=== PATIENT | male | born 1955 | race Caucasian/White ===

== ENCOUNTER 2018-12-24 12:42 | Inpatient (IN) | payer BC ==
[2018-12-24 13:23] LABS: #Eosinphils 0.5 thou/uL (0.0-0.7); #Lymphocytes 1.4 thou/uL (1.20-3.40); #Monocytes 1.1 thou/uL (0.11-0.59); #Neutrophils 11.2 thou/uL (1.40-6.50); %Basophils 0.2 % (0.0-1.0); %Eosinophils 3.7 % (0.0-10.0); %Lymphocytes 9.8 % (21.0-51.0); %Monocytes 7.4 % (0.0-10.0); %Neutrophils 78.9 % (42.0-75.0); Hemoglobin 12.3 g/dL (14.0-18.0); Mean Corpuscular HGB CONC 32.1 g/dL (32.0-36.0); Mean Corpuscular Hemoglobin 30.6 pg (27.0-31.0); Mean Corpuscular Volume 95.3 fL (78.0-98.0); Mean Platelet Volume 6.8 fL (7.4-10.4); Platelet Count 270 thou/uL (130-400); RBC Distribution Width 12.4 % (11.5-14.5); Red Blood Cell (RBC) Count 4.01 mill/uL (4.70-6.10); White Blood Cell (WBC) Count 14.2 thou/uL (4.8-10.8)
[2018-12-24 13:37] LABS: ALT (SGPT) 19 U/L (8-55); AST (SGOT) 21 U/L (5-34); Albumin 3.6 g/dL (3.4-4.8); Alkaline Phosphatase 91 U/L (40-150); Anion Gap 16 mmol/L (10-20); BUN (Urea Nitrogen) 36 mg/dL (8.4-25.7); Bilirubin, Total 0.9 mg/dL (0.2-1.2); CK (CPK) 67 U/L (30-200); Calc. Creatinine Clearance 0 mL/min (70-130); Calcium 8.6 mg/dL (7.8-10.44); Carbon Dioxide 24 mmol/L (23-31); Chloride 101 mmol/L (98-107); Estimated GFR-MDRD 42; Globulin 3.3 g/dL (2.4-3.5); Glucose 126 mg/dL (80-115); Protein, Total 6.9 g/dL (5.8-8.1); Sodium 137 mmol/L (136-145)
[2018-12-24] MEDS ORDERED: ISOVUE-370 76%-LOCM 1 ML ONE (13:53)
[2018-12-24 14:00] LABS: CKMB 1.4 ng/mL (0-6.6)
[2018-12-24] MEDS ORDERED: Enoxaparin Sodium 100 MG/ML SYRINGE ONE (14:25)
[2018-12-24] MEDS ORDERED: Enoxaparin Sodium 30 MG/0.3 ML SYRINGE ONE (14:25)
[2018-12-24] MEDS ORDERED: Enoxaparin Sodium 40 MG/0.4 ML SYRINGE ONE (14:28)
[2018-12-24] MEDS ORDERED: Enoxaparin Sodium 60 MG/0.6 ML SYRINGE ONE (14:28)
--- NOTE | 2018-12-24 14:30 | CT ---
CTA CHEST WITH CONTRAST: HISTORY: Lightheadedness and near syncope. Poor oxygen saturation. COMPARISON: None. TECHNIQUE: Multiple contiguous axial images were obtained in a CTA chest with contrast, per pulmonary embolism p rotocol, and 3D oblique MIP reformats and direct coronal reformats were performed. FINDINGS: There are multiple filling defects in the pulmonary arteries, scattered throughout the lungs, consist ent with multiple pulmonary emboli. The heart is normal in size. No significant shift of the interv entricular septum of the heart is seen. No hilar or mediastinal lymphadenopathy is seen. No pneumothorax or pleural effusion is seen. No focal infiltrates are seen in the lungs. No suspici ous pulmonary nodule is seen. There are healed remote right rib fractures. Degenerative changes are seen in the spine. The visual ized subdiaphragmatic structures are unremarkable. IMPRESSION: Multiple bilateral pulmonary emboli. Dr. Baer was notified of the findings at 2:09 p.m. on 12/24/2018. CODE CR
[2018-12-24] MEDS ORDERED: Calcium Carbonate 500 MG ChewTAB PO PRN (14:35)
[2018-12-24] MEDS ORDERED: Ondansetron PF 4 MG/2 ML Vial IVP PRN ×2 (14:35)
[2018-12-24] MEDS ORDERED: hydrALAZINE 20 MG/ML VIAL SLOW IVP PRN (14:35)
[2018-12-24] MEDS ORDERED: Bisacodyl 5 MG TAB PO PRN ×2 (14:35)
[2018-12-24] MEDS ORDERED: cloNIDine 0.1 MG TAB PO PRN (14:35)
[2018-12-24] MEDS ORDERED: Sodium Chloride 0.65% Nasal 44 ML BOT EA NARE PRN (14:35)
[2018-12-24] MEDS ORDERED: Benzonatate 100 MG CAP PO PRN (14:35)
[2018-12-24] MEDS ORDERED: Diabetic Tussin 200 MG/10 ML UDCUP PO PRN (14:35)
[2018-12-24] MEDS ORDERED: Senokot S 8.6-50 MG TAB PO PRN ×2 (14:35)
[2018-12-24] MEDS ORDERED: Acetaminophen 325 MG TAB PO PRN (14:35)
[2018-12-24 15:04] LABS: INR-International Normal Ratio 1.1; PTT 31.9 SEC (22.9-36.1); Prothrombin Time 14.4 SEC (12.0-14.7)
[2018-12-24 16:42] VITALS: BMI 45.1
--- NOTE | 2018-12-24 17:24 | HP ---
PRIMARY CARE PHYSICIAN: Hector Mendoza MD CHIEF COMPLAINT: Fainting and shortness of breath. HISTORY OF PRESENTING ILLNESS: Mr. Gonzales is a pleasant 63-year-old male with past medical history of hypertension, who presented to the ER with above-mentioned complaint. History is mainly obtained by the patient himself. Electronic medical records have been reviewed, and case has been discussed with admitting ER physician, Dr. Baer. Mr. Gonzales reports that he recently underwent a knee replacement surgery for his left knee over at [facility] by Dr. Soria. He was discharged to rehab and came back home earlier this morning. He has been doing fine up until this morning. At home, he felt lightheaded and almost passed out. He was feeling clammy. EMS was called, and he was found to be tachypneic with oxygen saturation of 88% and tachycardic en route. Oxygen level improved to 97% to 98% with 1 L. He otherwise denies any recent illnesses. He did not have any chest pain, orthopnea, or PND. He denies any lower extremity pain, swelling, erythema, or edema. He has no complications with his recent TKR. Upon presentation to the ER, he was still tachycardic with a heart rate of 124, but saturating 90% on room air, improving to 93% to 94% on [address] angio was done, which showed bilateral pulmonary embolism. A 12-lead EKG shows sinus tachycardia. He was given one dose of therapeutic Lovenox and is now being admitted to [facility] for the same. During his stay at [facility], he was having difficulty with urination in the postoperative period, so he was sent home with a Ng catheter and leg bag and is supposed to follow up with Urology in the outpatient setting. His dressings for the left knee have been replaced on 12/20/2018 over at the rehab. The patient denies any similar symptoms in the past. PAST MEDICAL HISTORY: 1. Hypertension. 2. Fluid retention. 3. Urinary incontinence and retention postop. PAST SURGICAL HISTORY: Left knee surgery on 12/11/2018. PSYCHIATRIC HISTORY: No anxiety. No depression. SOCIAL HISTORY: He lives at home with his family. No history of drug, tobacco, or alcohol abuse. FAMILY HISTORY: Significant for stomach cancer in his mother, who at the age of 90 with lung metastasis. He denies any history of bleeding or clotting disorder or heart disease running in his family. ALLERGIES: NO KNOWN MEDICATION ALLERGIES. CURRENT MEDICATIONS: Hydrochlorothiazide 12.5 mg daily, otherwise unknown. Further need to be reconciled. REVIEW OF SYSTEMS: A 14-point review of system is done and it is negative except for those mentioned in the history and physical. LABORATORY DATA: CBC shows WBCs 14.2, hemoglobin 12.3. His PT, PTT, and INR are unremarkable. Serum chemistry showed BUN 36, creatinine 1.67, blood sugar 126. Troponin 0.067 with a CK-MB of 1.4. BNP of 21. A 12-lead EKG by my review shows sinus tachycardia without any acute ST or T-wave changes. CT angio shows multiple bilateral pulmonary emboli. No cardiomegaly or shift of interventricular septum of the heart is seen. PHYSICAL EXAMINATION: VITAL SIGNS: His vital signs upon presentation to the ER include pulse of 124, respirations 22, temperature 98.4, saturating 90% on room air, blood pressure 90/57 with most recent blood pressure of 136/91. GENERAL: No acute distress. Awake, alert, and oriented x3. HEENT: Mucous membrane is slightly dry. No oropharyngeal exudate or erythema. Head is normocephalic and atraumatic. Pupils are equal and reactive to light and accommodation. Extraocular movement intact. NECK: Supple without any lymphadenopathy, JVD, or bruit. CHEST: Clear to auscultation without any wheezing, rales, or rhonchi. HEART: Rate and rhythm are regular without any murmurs, rubs, or gallops. ABDOMEN: Obese, soft, nontender, nondistended. Positive bowel sounds. EXTREMITIES: Free of any cyanosis, clubbing, or edema. No calf tenderness is noticed. His left knee has no erythema, warmth, or swelling. A long postoperative dressing is noted on his left knee extending to his anterior tamez without any discharge. NEUROLOGICAL: Nonfocal. SKIN: Free of any rashes or bruises. Feels warm and dry to touch. PSYCHIATRIC: Normal affect. IMPRESSION AND PLAN: 1. Pulmonary embolism, bilateral and multiple. This is most likely secondary to immobilization in the postoperative period. The patient will be anticoagulated with Lovenox 1 mg/kg b.i.d. and will be admitted to [facility], and we will consult Pulmonary Medicine for further recommendations. He can be easily transitioned to oral anticoagulation within a day or so and then monitored for any complications in the hospital. He most likely will require anticoagulation for at least 6 months given the fact that pulmonary embolism are multiple. No other risk factors are noticed. He is a nonsmoker. He is otherwise hemodynamically stable without any evidence of right-sided heart strain. 2. Acute renal insufficiency, most likely poor hydration. His last creatinine noted in our system was 1.80. At this time, we will avoid any nephrotoxic agents and monitor him closely. If needed, he can be started on some IV fluids. 3. Morbid obesity. 4. Hypertension. Reconcile home medications. Use p.r.n. antihypertensives for now. 5. Indeterminate troponin, likely due to pulmonary embolism without any real right ventricular strain. We will trend serial cardiac enzymes, and if they continue to go up, we will obtain a transesophageal echocardiogram. The patient denies any history of cardiac disease for himself. DISPOSITION: Mr. Gonzales is being admitted to the hospital for bilateral pulmonary embolism, most likely related to immobilization in the postoperative period. Estimated length of stay at this time is at least 2 to 3 midnights. Further management will depend upon his clinical course. Job ID: [id number]
[2018-12-24] MEDS ORDERED: Heparin 10,000 UNITS/ 10 ML VIAL SLOW IVP SCH (19:30)
[2018-12-24] MEDS: Heparin 25,000 units/D5W 500 ML IV SCH (19:54)
[2018-12-24] MEDS: Famotidine 20 MG TAB PO SCH (20:08)
[2018-12-24] MEDS ORDERED: Enoxaparin Sodium 100 MG/ML SYRINGE SC SCH (21:00)
[2018-12-24] MEDS ORDERED: Enoxaparin Sodium 40 MG/0.4 ML SYRINGE SC SCH (21:00)
[2018-12-24] MEDS ORDERED: Enoxaparin Sodium 120 MG/0.8 ML SYRINGE SC SCH (21:00)
--- NOTE | 2018-12-24 21:12 | CON ---
DATE OF CONSULTATION: 12/24/2018 SERVICE: Pulmonary Medicine. REASON FOR CONSULT: Pulmonary embolism. HISTORY OF PRESENT ILLNESS: The patient is a 63-year-old white male with past medical history significant for recent knee surgery. This was exactly 13 days ago. He was in his usual state of health and was participating with rehabilitation. He actually just got released from rehabilitation today. He was breathing comfortably and had no complaints. He then had sudden onset of feeling unwell. He got lightheaded and had a little bit of shortness of breath. Otherwise, he had a hard time characterizing his discomfort. He was cold and clammy, and presented immediately to the hospital. He was found to be tachycardic and tachypneic. D-dimer was elevated, prompting a CTA of the chest. This confirmed a large pulmonary embolism. He was loaded with Lovenox. He has been tucked into the IM. Since he has been on oxygen, he has felt a little bit better. He currently denies any chest discomfort. EKG showed some sinus tachycardia without any significant ST elevations. PAST MEDICAL HISTORY: 1. Hypertension. 2. Urinary incontinence/retention. 3. History of PE in the postop setting. PAST SURGICAL HISTORY: Left knee surgery. SOCIAL HISTORY: Negative for alcohol, tobacco, or illicit drug use. He has no exposure to chemicals, dust, asbestos, or tuberculosis. FAMILY HISTORY: Noncontributory. ALLERGIES: NO KNOWN DRUG ALLERGIES. MEDICATIONS: List of his inpatient medications was reviewed. I would discontinue the Lovenox and put him on heparin drip. The tPA will be placed at bedside. REVIEW OF SYSTEMS: General, head, ears, eyes, nose, throat, cardiovascular, respiratory, GI, , musculoskeletal, neurologic, and skin are negative except as mentioned in the HPI. PHYSICAL EXAMINATION: VITAL SIGNS: Afebrile, pulse 120, blood pressure 102/77, respirations 21, saturation 95% on 3 L nasal cannula. GENERAL: The patient is awake and alert, in no apparent distress. LUNGS: Excellent air entry. There is absolutely no prolonged expiratory phase or wheezing present. No crackles or rhonchi appreciated. HEART: Tachycardic. Regular. ABDOMEN: Soft, nontender, and nondistended. Bowel sounds are positive. MUSCULOSKELETAL: No cyanosis or clubbing. There is no pitting in either lower extremities. He has a bandage across the left knee across his incision. NEUROLOGIC: Grossly nonfocal. : No Ng. LABORATORY DATA: WBC 14.2, hemoglobin 12.3, platelets 270,000. Neutrophil count is 79% on top of 10% lymphocytes. INR 1.1. Basic metabolic profile is significant for creatinine of 1.67, which is above his baseline of 1.21. This number seems to be downtrending. Liver function studies are unremarkable. Troponin has gone from 0.07-1.2. BNP was originally unremarkable at 21. IMAGING: CTA of the chest demonstrates bilateral pulmonary emboli. Otherwise, there is no acute cardiopulmonary abnormality. The right ventricle looks quite generous. There is dyeing out of the septum. That being said, there is no reflux of contrast into the inferior vena cava. The clot burden seems to be quite impressive with a saddle component. ASSESSMENT: 1. Acute hypoxic respiratory failure. 2. Acute pulmonary embolism, submassive. 3. Hfl-DH-[id number] myocardial infarction secondary to right heart strain, most likely. DISCUSSION AND PLAN: I will give the patient 250 mL bolus of fluid. We will initiate fluids overnight. We will put him on a heparin drip and put a dose of tPA at bedside. If he gets worse, we will go ahead and give him that tPA, but I would like to hold off for the time being. We will repeat BNP and troponin once again tomorrow morning. This patient has a significant chance of decompensation but unfortunately, cannot give him tPA since he is less than two weeks postop. 70 minutes have been devoted to this patient in various activities. I personally reviewed all imaging studies and laboratory data noted within this document. For fifty percent of this time, I was interacting with the patient at the bedside or coordinating care with the care team. For the remainder of the time I was immediately available to the patient in the hospital unit. Job ID: [id number] MTDD
[2018-12-25 03:19] LABS: PTT Greater than 250.0 SEC (22.9-36.1)
[2018-12-25 05:45] LABS: #Basophils 0.1 thou/uL (0.0-0.2); #Eosinphils 0.4 thou/uL (0.0-0.7); #Lymphocytes 1.7 thou/uL (1.20-3.40); #Monocytes 1.1 thou/uL (0.11-0.59); %Basophils 0.5 % (0.0-1.0); %Eosinophils 3.6 % (0.0-10.0); %Lymphocytes 15.1 % (21.0-51.0); %Monocytes 10.1 % (0.0-10.0); %Neutrophils 70.7 % (42.0-75.0); Hemoglobin 11.5 g/dL (14.0-18.0); Mean Corpuscular HGB CONC 32.1 g/dL (32.0-36.0); Mean Corpuscular Hemoglobin 30.3 pg (27.0-31.0); Mean Corpuscular Volume 94.3 fL (78.0-98.0); Mean Platelet Volume 6.7 fL (7.4-10.4); Platelet Count 235 thou/uL (130-400); RBC Distribution Width 12.4 % (11.5-14.5); Red Blood Cell (RBC) Count 3.79 mill/uL (4.70-6.10); White Blood Cell (WBC) Count 11.2 thou/uL (4.8-10.8)
[2018-12-25 06:00] LABS: PTT 148.7 SEC (22.9-36.1)
[2018-12-25 06:02] LABS: Anion Gap 14 mmol/L (10-20); BUN (Urea Nitrogen) 34 mg/dL (8.4-25.7); Calc. Creatinine Clearance 93 mL/min (70-130); Calcium 8.7 mg/dL (7.8-10.44); Carbon Dioxide 26 mmol/L (23-31); Estimated GFR-MDRD 45; Glucose 103 mg/dL (80-115); Potassium 3.7 mmol/L (3.5-5.1); Sodium 138 mmol/L (136-145)
[2018-12-25 06:09] LABS: Chloride 102 mmol/L (98-107)
[2018-12-25 06:10] LABS: Critical Call Chem Troponin I RESULT DECREASING; Troponin I 1.195 ng/mL (< 0.028)
[2018-12-25] MEDS: Famotidine 20 MG TAB PO SCH ×2 (09:57→20:36)
--- NOTE | 2018-12-25 13:49 | PRG ---
DATE OF SERVICE: 12/25/2018 SERVICE: Pulmonary Medicine. INTERVAL HISTORY: The patient made it through the night without incident. Denies any current chest pain, fevers, cough, nausea, or vomiting. He is breathing comfortably. He remains on 2 L nasal cannula. He is yet to be too terribly active. PHYSICAL EXAMINATION: VITAL SIGNS: Afebrile. Pulse 91, blood pressure 134/85, respirations 22, saturation 90% on 2 L nasal cannula. GENERAL: The patient is awake and alert, in no apparent distress. LUNGS: Decent air entry. No prolonged expiratory phase, wheezing, rhonchi, or crackles are present. HEART: Normal rate, regular. ABDOMEN: Soft, nontender, nondistended. Bowel sounds are positive. MUSCULOSKELETAL: No cyanosis or clubbing. No pitting in the bilateral lower extremities. NEUROLOGIC: Grossly nonfocal. LABORATORY DATA: WBC 11.1, hemoglobin 11.5, platelets 235,000. PTT is 114. Creatinine 1.57, BUN 34. Basic metabolic profile is otherwise unremarkable. Troponin is downtrending gently to 1.19. BNP is significantly increased. ASSESSMENT: 1. Acute hypoxic respiratory failure. 2. Acute pulmonary embolism, submassive. 3. Non-ST elevation myocardial infarction secondary to right heart strain. DISCUSSION AND PLAN: We will repeat troponin and BNP tomorrow morning. If these values are both dropping still, we will likely just switch him over to oral anticoagulant, and let things be. If on the other hand, either one of these two things are going up, we will give strong consideration to tPA as he would be outside the window for absolute contraindication. He will need to stay in the IMCU for an additional 24 hours on his heparin drip. Pulmonary/Critical Care will follow. Job ID: [id number]
[2018-12-25] MEDS: Heparin 25,000 units/D5W 500 ML IV SCH (15:27)
--- NOTE | 2018-12-25 19:12 | PDOC.PN ---
- Subjective Encounter Start Date: 12/25/18 Encounter Start Time: 19:11 Subjective: feels well. no more weakness .no dizzy spells -: no CP/SOB - Objective MAR Reviewed: Yes Vital Signs & Weight: Vital Signs (12 hours) Temp Pulse Ox 12/25/18 15:46 99.7 F H 12/25/18 10:46 98.2 F 12/25/18 08:00 98 12/25/18 07:45 97.7 F Weight Weight 298 lb 4.567 oz Most Recent Monitor Data Heart Rate from ECG 96 NIBP 124/84 NIBP BP-Mean 97 Respiration from ECG 22 SpO2 100 I&O: 12/24/18 12/25/18 12/26/18 06:59 06:59 06:59 Intake Total 772 Output Total 640 Balance 132 Result Diagrams: 12/25/18 05:23 12/25/18 05:23 Additional Labs: Laboratory Tests 12/24/18 12/24/18 12/24/18 13:06 13:06 17:52 Troponin I 0.067 H 1.249 H* B-Natriuretic Peptide 21.0 12/25/18 12/25/18 05:23 05:23 Troponin I 1.195 H* B-Natriuretic Peptide 802.7 H Phys Exam - Physical Examination Constitutional: NAD HEENT: PERRLA, moist MMs, sclera anicteric, oral pharynx no lesions Neck: no nodes, no JVD, supple, full ROM Respiratory: no wheezing, no rales, no rhonchi, clear to auscultation bilateral Cardiovascular: RRR, no significant murmur Gastrointestinal: soft, non-tender, no distention, positive bowel sounds Musculoskeletal: no edema, pulses present Neurological: non-focal, normal sensation, moves all 4 limbs Psychiatric: normal affect, A&O x 3 Skin: no rash Dx/Plan (1) Pulmonary emboli Code(s): I26.99 - OTHER PULMONARY EMBOLISM WITHOUT ACUTE COR PULMONALE Status : Acute (2) HTN (hypertension) Code(s): I10 - ESSENTIAL (PRIMARY) HYPERTENSION Status: Acute (3) HLD (hyperlipidemia) Code(s): E78.5 - HYPERLIPIDEMIA, UNSPECIFIED Status: Acute (4) Morbid obesity Code(s): E66.01 - MORBID (SEVERE) OBESITY DUE TO EXCESS CALORIES Status: Acute - Plan DVT proph w/SCDs cont heparin drip for B/L PE . -: BNp and troponin trended up but HD stable.may need t-pa if values worsen -: appreciate PCCM recs -: Check ECHO for evidence of RV strain. * . Review of Systems - Review of Systems Constitutional: negative: fever, chills, sweats, weakness, malaise, other Respiratory: negative: Cough, Dry, Shortness of Breath, Hemoptysis, SOB with Excertion, Pleuritic Pain, Sputum, Wheezing Cardiovascular: negative: chest pain, palpitations, orthopnea, paroxysmal nocturnal dyspnea, edema, light headedness, other Gastrointestinal: negative: Nausea, Vomiting, Abdominal Pain, Diarrhea, Constipation, Melena, Hematochezia, Other Genitourinary: negative: Dysuria, Frequency, Incontinence, Hematuria, Retention , Other Musculoskeletal: negative: Neck Pain, Shoulder Pain, Arm Pain, Back Pain, Hand Pain, Leg Pain, Foot Pain, Other Neurological: negative: Weakness, Numbness, Incoordination, Change in Speech, Confusion, Seizures, Other - Medications/Allergies Allergies/Adverse Reactions: Allergies Allergy/AdvReac Type Severity Reaction Status Date / Time No Known Allergies Allergy Verified 12/24/18 16:31 Medications: Current Medications Acetaminophen (Tylenol) 650 mg PO Q4H PRN PRN Reason: Headache/Fever/Mild Pain (1-3) Benzonatate (Tessalon) 100 mg PO Q6H PRN PRN Reason: Cough Bisacodyl (Dulcolax) 10 mg PO DAILYPRN PRN PRN Reason: Constipation Calcium Carbonate (Tums) 1,000 mg PO Q4H PRN PRN Reason: Heartburn or Indigestion Clonidine (Catapres) 0.1 mg PO Q4H PRN PRN Reason: SBP > 160____ Famotidine (Pepcid) 20 mg PO BID [facility] Last Admin: 12/25/18 09:57 Dose: 20 mg Guaifenesin (Robitussin Sf) 200 mg PO Q4H PRN PRN Reason: Cough Heparin Sodium (Porcine) (Heparin 1,000 Units/Ml (10 Ml)) 0 units SLOW IVP [facility] Last Admin: 12/24/18 19:54 Dose: 10 ml Hydralazine HCl (Apresoline) 10 mg SLOW IVP Q4H PRN PRN Reason: SBP > 180 and HR < 70 Heparin Sodium/Dextrose (Heparin 25,000 Units/D5w 500 Ml) 500 mls @ 0 mls/hr IV INF MAIDA; Protocol Last Admin: 12/25/18 15:27 Dose: 500 mls Ondansetron HCl (Zofran) 4 mg IVP Q6H PRN PRN Reason: Nausea/Vomiting Senna/Docusate Sodium (Senokot S) 2 tab PO BID PRN PRN Reason: Constipation Sodium Chloride ([place] Nasal [place] 0.65%) 0 ml EA NARE QIDPRN PRN PRN Reason: Nasal Congestion
[2018-12-25] MEDS ORDERED: Loratadine 10 MG TAB PO PRN (20:00)
[2018-12-26 05:20] LABS: Hemoglobin 11.1 g/dL (14.0-18.0)
[2018-12-26 05:42] LABS: Anion Gap 12 mmol/L (10-20); BUN (Urea Nitrogen) 35 mg/dL (8.4-25.7); Calc. Creatinine Clearance 91 mL/min (70-130); Calcium 8.6 mg/dL (7.8-10.44); Carbon Dioxide 27 mmol/L (23-31); Chloride 102 mmol/L (98-107); Estimated GFR-MDRD 45; Glucose 91 mg/dL (80-115); Potassium 3.8 mmol/L (3.5-5.1); Sodium 137 mmol/L (136-145)
[2018-12-26 05:54] LABS: Critical Call Chem Troponin I RESULT DECREASING; Troponin I 0.319 ng/mL (< 0.028)
[2018-12-26] MEDS: Famotidine 20 MG TAB PO SCH ×2 (08:36→20:39)
[2018-12-26] MEDS ORDERED: Famotidine 20 MG TAB PO SCH (09:00)
[2018-12-26] MEDS ORDERED: Apixaban 5 MG TAB PO SCH (12:00)
--- NOTE | 2018-12-26 12:42 | PRG ---
DATE OF SERVICE: 12/26/2018 SERVICE: Pulmonary Medicine. INTERVAL HISTORY: The patient is doing really well from breathing standpoint. Denies any current chest pain, fevers, cough, nausea, or vomiting. He is able to walk in the hallways without oxygen. He did not desaturate. His blood pressures did well, and he did not develop any weakness or lightheadedness. PHYSICAL EXAMINATION: VITAL SIGNS: Afebrile, pulse 90, blood pressure 132/85, respirations 17, and saturation is 95% on room air. GENERAL: The patient is awake and alert, in no apparent distress. LUNGS: Very good air entry. There is no prolonged expiratory phase. No wheezing or crackles are appreciated. HEART: Normal rate and regular. ABDOMEN: Soft, nontender, and nondistended. Bowel sounds are positive. MUSCULOSKELETAL: No cyanosis or clubbing. No pitting in the bilateral lower extremities. NEUROLOGIC: Grossly nonfocal. LABORATORIES: Hemoglobin 11.1. Creatinine 1.58 and stable. Basic metabolic profile is otherwise unremarkable. Troponin is beautifully downtrending, as is the BNP. Magnesium is 2.1. His sodium is 137, and beautifully stable. ASSESSMENT: 1. Acute hypoxic respiratory failure, resolved. 2. Acute pulmonary embolism, submassive. 3. Vre-BS-vrtrnpy elevation myocardial infarction, secondary to right heart strain, resolving. DISCUSSION AND PLAN: Because of the beautiful response of the BNP and troponin, we can transition him to the floor and switch him over to oral agents. We will repeat all of these laboratories in the morning. If they continue to trend downward, he will be stable for discharge from the hospital. Pulmonary/Critical Care will continue to follow along. Job ID: [id number]
[2018-12-26] MEDS: Apixaban 5 MG TAB PO SCH (20:39)
--- NOTE | 2018-12-26 22:10 | PDOC.HOSPP ---
- Subjective Subjective: Patient seen and examined for PE. No CP/SOB or palpitations. No new complaints. No overnight events - Objective Vital Signs & Weight: Vital Signs (12 hours) Temp Pulse Resp BP Pulse Ox 12/26/18 19:15 98.7 F 91 18 139/68 92 L 12/26/18 16:45 98.2 F 102 H 16 119/87 99 12/26/18 15:17 99.8 F H 12/26/18 10:49 98.9 F Weight Weight 292 lb 15.909 oz Most Recent Monitor Data Heart Rate from ECG 96 NIBP 133/71 NIBP BP-Mean 91 Respiration from ECG 29 SpO2 92 I&O: 12/25/18 12/26/18 12/27/18 06:59 06:59 06:59 Intake Total 772 1350 780 Output Total 640 2675 400 Balance 132 -1325 380 Result Diagrams: 12/26/18 04:52 12/26/18 04:52 Additional Labs: Laboratory Tests 12/24/18 12/24/18 12/24/18 13:06 13:06 17:52 Troponin I 0.067 H 1.249 H* B-Natriuretic Peptide 21.0 12/25/18 12/26/18 12/26/18 05:23 04:52 04:52 Troponin I 0.319 H* B-Natriuretic Peptide 802.7 H 220.7 H EKG Reviewed by me: Yes (Tele SR) ROS - Review of Systems All systems: All other ROS were reviewed and found negative. - Medication Medications: Active Medications Generic Name Dose Route Start Last Admin Trade Name Freq PRN Reason Stop Dose Admin Apixaban 10 mg 12/26/18 21:00 12/26/18 20:39 Eliquis PO 01/02/19 21:01 10 mg BID MAIDA Administration Famotidine 20 mg 12/24/18 21:00 12/26/18 20:39 Pepcid PO 20 mg BID MAIDA Administration - Exam NAD Heart: RRR, no rubs Respiratory: CTAB, no ronchi Gastrointestinal: soft, non-tender, normal bowel sounds Extremities: no cyanosis Neurological: no focal deficits Hosp A/P (1) Pulmonary emboli Code(s): I26.99 - OTHER PULMONARY EMBOLISM WITHOUT ACUTE COR PULMONALE Status : Acute Qualifiers: Chronicity: acute (2) Type 2 myocardial infarction Code(s): I21.A1 - MYOCARDIAL INFARCTION TYPE 2 (3) HLD (hyperlipidemia) Code(s): E78.5 - HYPERLIPIDEMIA, UNSPECIFIED Status: Chronic (4) HTN (hypertension) Code(s): I10 - ESSENTIAL (PRIMARY) HYPERTENSION Status: Chronic (5) Morbid obesity with BMI of 40.0-44.9, adult Code(s): E66.01 - MORBID (SEVERE) OBESITY DUE TO EXCESS CALORIES; Z68.41 - BODY MASS INDEX (BMI) 40.0-44.9, ADULT Status: Chronic (6) H/O left knee surgery Code(s): Z98.890 - OTHER SPECIFIED POSTPROCEDURAL STATES (7) CKD (chronic kidney disease) stage 3, GFR 30-59 ml/min Code(s): N18.3 - CHRONIC KIDNEY DISEASE, STAGE 3 (MODERATE) Status: Chronic (8) Chronic anemia Code(s): D64.9 - ANEMIA, UNSPECIFIED Status: Chronic - Plan plan discussed w/ family, PT/OT Started on Eliquis - Patient understands the risk associated with anticoag Consult Ortho per patient request for rachel removal Cont to monitor Echo reviewed Cont other meds as below Eliquis coupon provided AM labs
[2018-12-27 05:51] LABS: Anion Gap 12 mmol/L (10-20); BUN (Urea Nitrogen) 33 mg/dL (8.4-25.7); Calc. Creatinine Clearance 108 mL/min (70-130); Calcium 8.4 mg/dL (7.8-10.44); Carbon Dioxide 25 mmol/L (23-31); Chloride 103 mmol/L (98-107); Estimated GFR-MDRD 53; Glucose 89 mg/dL (80-115); Potassium 3.7 mmol/L (3.5-5.1); Sodium 136 mmol/L (136-145)
[2018-12-27 05:57] LABS: Troponin I 0.192 ng/mL (< 0.028)
[2018-12-27] MEDS: Apixaban 5 MG TAB PO SCH (08:41)
[2018-12-27] MEDS: Famotidine 20 MG TAB PO SCH (08:42)
[2018-12-27] MEDS ORDERED: Amlodipine 10 MG TAB PO SCH (09:00)
[2018-12-27 13:06] VITALS: BP 143/81; TEMP 98.2
--- NOTE | 2018-12-27 14:37 | PRG ---
DATE OF SERVICE: 12/27/2018 SERVICE: Pulmonary Medicine. INTERVAL HISTORY: The patient is doing outstanding from a respiratory standpoint. He has no complaints of chest discomfort, nausea, or vomiting. He is able to walk with physical therapy without difficulty. Otherwise, he has returned to his usual state of health. He has been weaned down to room air for over 12 hours. PHYSICAL EXAMINATION: VITAL SIGNS: Afebrile, pulse 83, blood pressure 143/81, respirations 18, and saturation 94% on room air. GENERAL: The patient is awake and alert, in no apparent distress. LUNGS: Very good air entry without any prolonged expiratory phase or wheezing present. HEART: Normal rate and regular. ABDOMEN: Soft, nontender, and nondistended. Bowel sounds are positive. MUSCULOSKELETAL: No cyanosis or clubbing. There is no pitting in the bilateral lower extremities. NEUROLOGIC: Grossly nonfocal. LABORATORY DATA: Troponin was 0.19 and downtrending, BNP 75 and also improved. Creatinine has improved to 1.37. Basic metabolic profile is otherwise unremarkable. IMAGING: Echocardiogram demonstrates normal ejection fraction. The right ventricle was not clearly identified. ASSESSMENT: 1. Acute hypoxic respiratory failure, resolved. 2. Acute pulmonary embolism, submassive. 3. Gkk-JI-yaduocwoc myocardial infarction secondary to right heart strain, resolving. DISCUSSION AND PLAN: The patient is stable for transition out of the hospital. He will need to go out on Eliquis. This is a 4-day load followed by 5 mg twice daily. I will have him return to clinic and see me in 3 months or sooner if clinically indicated. At that point, we will consider evaluating for sleep apnea. Job ID: [id number]
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
[2019-01-03] MEDS ORDERED: Apixaban 5 MG TAB PO SCH (21:00)
== END 2018-12-27 14:38 | disposition home or self-care (01) | DRG 175 ==
LOC: ERS 12:42 → IMCU/EMU 16:04 → 2NO 12-26 16:51
PROVIDERS: ADMIT Internal Medicine; ATTEND Internal Medicine
DX: I26.99 Other pulmonary embolism without acute cor pulmonale (principal); I21.A1 Myocardial infarction type 2; J96.01 Acute respiratory failure with hypoxia; N17.9 Acute kidney failure, unspecified; Z68.42 Body mass index [BMI] 45.0-49.9, adult; E66.01 Morbid (severe) obesity due to excess calories; E78.5 Hyperlipidemia, unspecified; N18.3 Chronic kidney disease, stage 3 (moderate); D63.1 Anemia in chronic kidney disease; I12.9 Hypertensive chronic kidney disease with stage 1 through stage 4 chronic kidney disease, or unspecified chronic kidney disease; I08.1 Rheumatic disorders of both mitral and tricuspid valves; Z96.652 Presence of left artificial knee joint; Z79.899 Other long term (current) drug therapy
CPT/HCPCS: 36415; 71275; 80048; 80053; 82550; 82553; 83735; 83880; 84484; 85014; 85018; 85025; 85610; 85730; 93005; 93306; 96372; J1644; J1650; J2997; Q9966

== ENCOUNTER 2019-02-13 13:46 | Outpatient (CLI) | payer BC ==
--- NOTE | 2019-02-13 14:20 | RAD ---
PA AND LATERAL CHEST: Date: 02/13/19 INDICATION: Dyspnea. COMPARISON: Prior exam dated 06/22/10. FINDINGS: There is stable elevation of the left hemidiaphragm. No consolidation is evident. There is multilevel spondylosis of the thoracic spine. Heart size is within normal limits. IMPRESSION: No acute cardiopulmonary abnormality. POS: OFF
== END 2019-02-13 13:47 | disposition home or self-care (01) ==
LOC: RAD 13:46
PROVIDERS: ATTEND Internal Medicine
DX: R06.00 Dyspnea, unspecified (principal)
CPT/HCPCS: 71046

== ENCOUNTER 2019-04-06 20:30 | Outpatient (CLI) | payer BC | END 2019-04-06 20:31 | disposition home or self-care (01) | LOC: SLEEPLAB 20:30 | PROVIDERS: ATTEND Internal Medicine | DX: G47.33 Obstructive sleep apnea (adult) (pediatric) (principal); E66.9 Obesity, unspecified; I10 Essential (primary) hypertension; R35.1 Nocturia; R53.83 Other fatigue; G47.31 Primary central sleep apnea | CPT/HCPCS: 95811 ==

== ENCOUNTER 2019-10-25 12:46 | Inpatient (IN) | payer BC ==
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
[2019-10-25 14:06] LABS: #Basophils 0.1 thou/uL (0.0-0.2); #Eosinphils 0.2 thou/uL (0.0-0.7); #Monocytes 0.8 thou/uL (0.11-0.59); #Neutrophils 9.5 thou/uL (1.40-6.50); %Basophils 0.5 % (0.0-1.0); %Eosinophils 1.7 % (0.0-10.0); %Monocytes 6.5 % (0.0-10.0); %Neutrophils 82.3 % (42.0-75.0); Hemoglobin 14.7 g/dL (14.0-18.0); Mean Corpuscular HGB CONC 32.3 g/dL (32.0-36.0); Mean Corpuscular Hemoglobin 30.4 pg (27.0-31.0); Mean Corpuscular Volume 94.1 fL (78.0-98.0); Mean Platelet Volume 7.5 fL (7.4-10.4); Platelet Count 204 thou/uL (130-400); RBC Distribution Width 13.1 % (11.5-14.5); Red Blood Cell (RBC) Count 4.84 mill/uL (4.70-6.10); White Blood Cell (WBC) Count 11.6 thou/uL (4.8-10.8)
[2019-10-25 14:13] LABS: PTT 31.7 SEC (22.9-36.1); Prothrombin Time 13.5 sec (12.0-14.7)
[2019-10-25] MEDS ORDERED: CEFAZOLIN 2 GM in Premix Bag 1 BAG IVPB SCH (14:30)
[2019-10-25 14:37] LABS: ALT (SGPT) 17 U/L (8-55); AST (SGOT) 21 U/L (5-34); Albumin 3.9 g/dL (3.4-4.8); Alkaline Phosphatase 81 U/L (40-110); Anion Gap 10 mmol/L (10-20); BUN (Urea Nitrogen) 29 mg/dL (8.4-25.7); Bilirubin, Total 0.5 mg/dL (0.2-1.2); Calc. Creatinine Clearance 0 mL/min (70-130); Calcium 8.6 mg/dL (7.8-10.44); Carbon Dioxide 25 mmol/L (23-31); Chloride 110 mmol/L (98-107); Estimated GFR-MDRD 56; Globulin 3.6 g/dL (2.4-3.5); Glucose 109 mg/dL (80-115); Potassium 3.7 mmol/L (3.5-5.1); Protein, Total 7.5 g/dL (5.8-8.1); Sodium 141 mmol/L (136-145)
[2019-10-25] MEDS ORDERED: Dextrose 50% Abboject 50 ML SYRINGE SLOW IVP PRN (14:44)
[2019-10-25] MEDS ORDERED: Ondansetron ODT 4 MG TAB PO PRN (14:44)
[2019-10-25] MEDS ORDERED: Dextrose 5% in Water 1,000 ML IV PRN (14:44)
[2019-10-25] MEDS ORDERED: hydrALAZINE 20 MG/ML VIAL SLOW IVP PRN (14:44)
[2019-10-25] MEDS ORDERED: Ondansetron PF 4 MG/2 ML Vial IVP PRN (14:44)
[2019-10-25] MEDS ORDERED: Morphine 2 MG/ML SYRINGE SLOW IVP PRN (14:44)
[2019-10-25] MEDS ORDERED: Promethazine HCl 25 MG/ML VIAL IM PRN (14:44)
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
[2019-10-25] MEDS ORDERED: Ibuprofen 600 MG TAB PO PRN (14:51)
[2019-10-25] MEDS ORDERED: traMADol HCl 50 MG TAB PO PRN ×2 (14:51)
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
[2019-10-25 15:17] LABS: Phosphorus 3.2 mg/dL (2.3-4.7)
[2019-10-25] MEDS ORDERED: Potassium Phosphate 15 MMOL in Sodium Chloride 0.9% 250 ML 250 ML IVPB SCH ×2 (17:15→19:45)
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
[2019-10-25 19:19] VITALS: BMI 52.9
[2019-10-25] MEDS: Sodium Chloride 0.9% 1,000 ML IV SCH ×2 (19:56→23:46)
[2019-10-25] MEDS: Acetaminophen 500 MG TAB PO SCH ×2 (19:57→23:09)
[2019-10-25] MEDS: Famotidine/PF 20 mg/2ml Vial SLOW IVP SCH (19:57)
[2019-10-25] MEDS: Cyclobenzaprine 10 MG TAB PO PRN (19:57)
[2019-10-25] MEDS: Senokot S 8.6-50 MG TAB PO SCH (19:58)
[2019-10-25] MEDS ORDERED: Sodium Chloride 0.9% 1,000 ML IV SCH (23:55)
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
[2019-10-26] MEDS: Acetaminophen 500 MG TAB PO SCH ×4 (05:37→23:20)
[2019-10-26] MEDS: Cyclobenzaprine 10 MG TAB PO PRN (05:37)
[2019-10-26 06:29] LABS: #Eosinphils 0.1 thou/uL (0.0-0.7); #Monocytes 1.1 thou/uL (0.11-0.59); #Neutrophils 5.6 thou/uL (1.40-6.50); %Basophils 0.1 % (0.0-1.0); %Eosinophils 1.5 % (0.0-10.0); %Lymphocytes 22.6 % (21.0-51.0); %Monocytes 12.6 % (0.0-10.0); %Neutrophils 63.1 % (42.0-75.0); Hemoglobin 11.1 g/dL (14.0-18.0); Mean Corpuscular HGB CONC 32.6 g/dL (32.0-36.0); Mean Corpuscular Hemoglobin 31.1 pg (27.0-31.0); Mean Corpuscular Volume 95.2 fL (78.0-98.0); Mean Platelet Volume 7.2 fL (7.4-10.4); Platelet Count 160 thou/uL (130-400); RBC Distribution Width 13.2 % (11.5-14.5); Red Blood Cell (RBC) Count 3.59 mill/uL (4.70-6.10); White Blood Cell (WBC) Count 8.8 thou/uL (4.8-10.8)
[2019-10-26 06:52] LABS: Anion Gap 11 mmol/L (10-20); BUN (Urea Nitrogen) 30 mg/dL (8.4-25.7); Calc. Creatinine Clearance 130 mL/min (70-130); Calcium 7.3 mg/dL (7.8-10.44); Carbon Dioxide 24 mmol/L (23-31); Chloride 110 mmol/L (98-107); Estimated GFR-MDRD 56; Glucose 94 mg/dL (80-115); Magnesium 2.1 mg/dL (1.6-2.6); Potassium 3.9 mmol/L (3.5-5.1); Sodium 141 mmol/L (136-145)
[2019-10-26 06:53] LABS: Phosphorus 5.1 mg/dL (2.3-4.7)
[2019-10-26] MEDS: Famotidine/PF 20 mg/2ml Vial SLOW IVP SCH ×2 (07:40→20:16)
[2019-10-26] MEDS: Sodium Chloride 0.9% 1,000 ML IV SCH (10:38)
[2019-10-26] MEDS: Senokot S 8.6-50 MG TAB PO SCH ×2 (10:38→22:02)
[2019-10-26] MEDS: Polyethylene Glycol 3350 17 GM Packet PO SCH (10:38)
[2019-10-26] MEDS ORDERED: Lidocaine 2% Jelly 5 ML TUBE ONE (11:48)
[2019-10-26] MEDS ORDERED: Fentanyl 100 MCG/2 ML VIAL ONE ×2 (11:48→15:00)
[2019-10-26] MEDS ORDERED: Midazolam HCl 2 mg/2 ml Vial ONE (11:48)
[2019-10-26] MEDS ORDERED: CEFAZOLIN 2 GM in Premix Bag 1 BAG IVPB SCH (14:00)
[2019-10-26] MEDS ORDERED: PROPOFOL 200 MG/20 ML VIAL ONE (14:23)
[2019-10-26] MEDS ORDERED: PHENYLEPHRINE-NS 100 MCG/ML 10 ML SYRINGE ONE (14:23)
[2019-10-26] MEDS ORDERED: Glycopyrrolate 0.2 MG/ML 5 ML SYRINGE ONE (14:23)
[2019-10-26] MEDS ORDERED: Lidocaine 1% PF 5 ML VIAL ONE (14:23)
[2019-10-26] MEDS ORDERED: Rocuronium Bromide 10 MG/ML (10ML VIAL) ONE (14:23)
[2019-10-26] MEDS ORDERED: Ondansetron HCl/PF 4 MG/2 ML Vial IVP PRN (14:28)
[2019-10-26] MEDS ORDERED: Promethazine HCl 25 MG/ML VIAL SLOW IVP PRN (14:28)
[2019-10-26] MEDS ORDERED: Promethazine HCl 25 MG/ML VIAL IM PRN (14:28)
--- NOTE | 2019-10-26 14:55 | RAD ---
EXAM: XR Femur Rt 2 View STANDARD PROVIDED CLINICAL HISTORY: ORIF COMPARISON: 10/25/2019 FINDINGS: Spot fluoroscopic frontal and lateral views of the right distal femur demonstrate interval lateral si de plate and screw fixation of distal femoral fracture with associated improved alignment. IMPRESSION: As above.
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
[2019-10-26] MEDS: CEFAZOLIN 2 GM in Premix Bag 1 BAG IVPB SCH (20:15)
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
[2019-10-27] MEDS: CEFAZOLIN 2 GM in Premix Bag 1 BAG IVPB SCH (03:52)
[2019-10-27] MEDS: Acetaminophen 500 MG TAB PO SCH ×4 (05:28→22:50)
[2019-10-27 05:46] LABS: #Lymphocytes 0.8 thou/uL (1.20-3.40); #Monocytes 0.9 thou/uL (0.11-0.59); #Neutrophils 10.6 thou/uL (1.40-6.50); %Basophils 0.1 % (0.0-1.0); %Eosinophils 0.1 % (0.0-10.0); %Lymphocytes 6.4 % (21.0-51.0); %Monocytes 7.5 % (0.0-10.0); Hemoglobin 9.8 g/dL (14.0-18.0); Mean Corpuscular HGB CONC 32.3 g/dL (32.0-36.0); Mean Corpuscular Volume 95.9 fL (78.0-98.0); Mean Platelet Volume 7.7 fL (7.4-10.4); Platelet Count 157 thou/uL (130-400); RBC Distribution Width 13.2 % (11.5-14.5); Red Blood Cell (RBC) Count 3.17 mill/uL (4.70-6.10); White Blood Cell (WBC) Count 12.3 thou/uL (4.8-10.8)
[2019-10-27 06:13] LABS: Anion Gap 12 mmol/L (10-20); BUN (Urea Nitrogen) 29 mg/dL (8.4-25.7); Calc. Creatinine Clearance 121 mL/min (70-130); Calcium 7.2 mg/dL (7.8-10.44); Carbon Dioxide 22 mmol/L (23-31); Chloride 110 mmol/L (98-107); Estimated GFR-MDRD 52; Glucose 139 mg/dL (80-115); Magnesium 2.2 mg/dL (1.6-2.6); Phosphorus 3.8 mg/dL (2.3-4.7); Potassium 4.3 mmol/L (3.5-5.1); Sodium 140 mmol/L (136-145)
[2019-10-27] MEDS: Amlodipine 10 MG TAB PO SCH (08:07)
[2019-10-27] MEDS: Polyethylene Glycol 3350 17 GM Packet PO SCH (08:07)
[2019-10-27] MEDS: Senokot S 8.6-50 MG TAB PO SCH ×2 (08:07→22:50)
[2019-10-27] MEDS ORDERED: Dicyclomine 10 MG CAP PO PRN (08:49)
[2019-10-27] MEDS: Apixaban 5 MG TAB PO SCH ×2 (09:37→22:49)
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
[2019-10-27] MEDS ORDERED: Sodium Chloride 0.9% 500 ML IV SCH (23:45)
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
[2019-10-28] MEDS: Acetaminophen 500 MG TAB PO SCH ×3 (05:43→17:31)
[2019-10-28 06:06] LABS: #Basophils 0.1 thou/uL (0.0-0.2); #Eosinphils 0.2 thou/uL (0.0-0.7); #Lymphocytes 2.5 thou/uL (1.20-3.40); #Monocytes 1.3 thou/uL (0.11-0.59); #Neutrophils 8.6 thou/uL (1.40-6.50); %Basophils 0.5 % (0.0-1.0); %Eosinophils 1.7 % (0.0-10.0); %Monocytes 9.9 % (0.0-10.0); %Neutrophils 67.8 % (42.0-75.0); Hemoglobin 9.9 g/dL (14.0-18.0); Mean Corpuscular HGB CONC 31.5 g/dL (32.0-36.0); Mean Corpuscular Hemoglobin 30.3 pg (27.0-31.0); Mean Corpuscular Volume 96.3 fL (78.0-98.0); Mean Platelet Volume 7.5 fL (7.4-10.4); Platelet Count 171 thou/uL (130-400); RBC Distribution Width 13.5 % (11.5-14.5); Red Blood Cell (RBC) Count 3.27 mill/uL (4.70-6.10); White Blood Cell (WBC) Count 12.7 thou/uL (4.8-10.8)
[2019-10-28 06:32] LABS: Anion Gap 13 mmol/L (10-20); BUN (Urea Nitrogen) 33 mg/dL (8.4-25.7); Calc. Creatinine Clearance 123 mL/min (70-130); Calcium 7.4 mg/dL (7.8-10.44); Carbon Dioxide 22 mmol/L (23-31); Chloride 110 mmol/L (98-107); Estimated GFR-MDRD 52; Glucose 90 mg/dL (80-115); Magnesium 2.3 mg/dL (1.6-2.6); Phosphorus 3.2 mg/dL (2.3-4.7); Potassium 3.9 mmol/L (3.5-5.1); Sodium 141 mmol/L (136-145)
[2019-10-28] MEDS: Amlodipine 10 MG TAB PO SCH (09:06)
[2019-10-28] MEDS: Senokot S 8.6-50 MG TAB PO SCH ×3 (09:07→21:32)
[2019-10-28] MEDS: Apixaban 5 MG TAB PO SCH ×2 (09:07→21:23)
[2019-10-28] MEDS: Polyethylene Glycol 3350 17 GM Packet PO SCH ×2 (09:07→09:19)
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
[2019-10-29] MEDS: Acetaminophen 500 MG TAB PO SCH ×4 (01:15→17:46)
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
[2019-10-29 05:18] LABS: Anion Gap 13 mmol/L (10-20); BUN (Urea Nitrogen) 27 mg/dL (8.4-25.7); Calc. Creatinine Clearance 140 mL/min (70-130); Calcium 7.6 mg/dL (7.8-10.44); Carbon Dioxide 24 mmol/L (23-31); Chloride 110 mmol/L (98-107); Estimated GFR-MDRD 61; Glucose 94 mg/dL (80-115); Magnesium 2.3 mg/dL (1.6-2.6); Phosphorus 3.5 mg/dL (2.3-4.7); Potassium 3.9 mmol/L (3.5-5.1); Sodium 143 mmol/L (136-145)
[2019-10-29 06:10] LABS: Hemoglobin 9.6 g/dL (14.0-18.0); Mean Corpuscular HGB CONC 32.8 g/dL (32.0-36.0); Mean Corpuscular Hemoglobin 31.5 pg (27.0-31.0); Mean Corpuscular Volume 96.2 fL (78.0-98.0); Mean Platelet Volume 7.3 fL (7.4-10.4); Platelet Count 186 thou/uL (130-400); RBC Distribution Width 13.4 % (11.5-14.5); Red Blood Cell (RBC) Count 3.04 mill/uL (4.70-6.10); White Blood Cell (WBC) Count 10.4 thou/uL (4.8-10.8)
[2019-10-29 06:46] LABS: Band 3 % (5-11); Eosinophils 10 % (0-10); Lymphocytes 23 % (21-51); MDiff Complete? YES; Monocytes 10 % (0-10); Neutrophil 54 % (42-75)
[2019-10-29] MEDS: Senokot S 8.6-50 MG TAB PO SCH ×2 (08:38→21:33)
[2019-10-29] MEDS: Polyethylene Glycol 3350 17 GM Packet PO SCH (08:38)
[2019-10-29] MEDS: Amlodipine 10 MG TAB PO SCH (08:38)
[2019-10-29] MEDS: Apixaban 5 MG TAB PO SCH ×2 (08:39→21:33)
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
[2019-10-30] MEDS: Acetaminophen 500 MG TAB PO SCH ×5 (00:17→23:13)
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
[2019-10-30] MEDS: Amlodipine 10 MG TAB PO SCH (09:22)
[2019-10-30] MEDS: Apixaban 5 MG TAB PO SCH ×2 (09:24→21:08)
[2019-10-30] MEDS: Senokot S 8.6-50 MG TAB PO SCH ×2 (09:25→21:08)
[2019-10-30] MEDS: Polyethylene Glycol 3350 17 GM Packet PO SCH (09:25)
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
[2019-10-31] MEDS: Acetaminophen 500 MG TAB PO SCH ×4 (06:29→22:58)
[2019-10-31] MEDS: Apixaban 5 MG TAB PO SCH ×2 (08:29→19:49)
[2019-10-31] MEDS: Amlodipine 10 MG TAB PO SCH (08:31)
[2019-10-31] MEDS: Senokot S 8.6-50 MG TAB PO SCH ×2 (08:31→19:52)
[2019-10-31] MEDS: Polyethylene Glycol 3350 17 GM Packet PO SCH (08:31)
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
[2019-11-01] MEDS: Acetaminophen 500 MG TAB PO SCH ×4 (06:36→23:43)
[2019-11-01] MEDS: Amlodipine 10 MG TAB PO SCH ×2 (08:06→09:09)
[2019-11-01] MEDS: Senokot S 8.6-50 MG TAB PO SCH ×2 (08:07→20:25)
[2019-11-01] MEDS: Apixaban 5 MG TAB PO SCH ×2 (08:07→20:25)
[2019-11-01] MEDS: Polyethylene Glycol 3350 17 GM Packet PO SCH (08:07)
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
[2019-11-02] MEDS: Acetaminophen 500 MG TAB PO SCH ×2 (05:36→12:25)
[2019-11-02] MEDS: Apixaban 5 MG TAB PO SCH (09:06)
[2019-11-02] MEDS: Amlodipine 10 MG TAB PO SCH (09:06)
[2019-11-02] MEDS: Senokot S 8.6-50 MG TAB PO SCH (09:10)
[2019-11-02] MEDS: Polyethylene Glycol 3350 17 GM Packet PO SCH (09:10)
[2019-11-02 11:46] VITALS: BP 126/79; TEMP 98.4
== END 2019-11-02 13:22 | DRG 481 ==
LOC: ERS 12:46 → SJJU 14:44
PROVIDERS: ADMIT Surgery; ATTEND Surgery
PROC: 0QSB04Z Reposition Right Lower Femur with Internal Fixation Device, Open Approach (ICD-10-PCS; principal; 2019-10-26)
DX: S72.451A Displaced supracondylar fracture without intracondylar extension of lower end of right femur, initial encounter for closed fracture (principal); M97.01XA Periprosthetic fracture around internal prosthetic right hip joint, initial encounter; Z68.43 Body mass index [BMI] 50.0-59.9, adult; N17.9 Acute kidney failure, unspecified; R32 Unspecified urinary incontinence; I10 Essential (primary) hypertension; E66.01 Morbid (severe) obesity due to excess calories; J30.2 Other seasonal allergic rhinitis; Z96.651 Presence of right artificial knee joint; Z79.01 Long term (current) use of anticoagulants; Z86.711 Personal history of pulmonary embolism; V49.00XA Driver injured in collision with unspecified motor vehicles in nontraffic accident, initial encounter
CPT/HCPCS: 36415; 36416; 71045; 76000; 80048; 80053; 83735; 84100; 85007; 85025; 85027; 85610; 85730; 86850; 86900; 86901; 93005; C1713; C1769; G0390; J0690; J2001; J2250; J2270; J2704; J3010; J7050; S0028

== ENCOUNTER 2020-01-01 15:53 | Outpatient (CLI) | payer BC ==
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
== END 2020-01-01 15:54 | disposition home or self-care (01) ==
LOC: BICRAD 15:53
PROVIDERS: ATTEND Physical Medicine & Rehabilitation
DX: S72.401A Unspecified fracture of lower end of right femur, initial encounter for closed fracture (principal); M97.8XXA Periprosthetic fracture around other internal prosthetic joint, initial encounter; Z96.651 Presence of right artificial knee joint; Z98.890 Other specified postprocedural states